=== PATIENT | female | born 1990 | race American Indian/Alaskan Native ===

== ENCOUNTER → 2018-02-09 | Day surgery (SDC) | payer OTHER ==
[2018-02-08 13:34] VITALS: BMI 36.2
[~2018-02-09] MED LIST: Bupivacaine 0.25% Inj(30mL) ONE; Bupivacaine 0.5% Inj(30mL) ONE; HYDROmorphone 0.5 mg/0.5 ml ISec IVP PRN; Lactated Ringer's 1,000 ML IV SCH; Lidocaine 1% Inj (20ml) ONE; Lidocaine PF 2% (5 ml) Inj (For Cardiac Arrhy) ONE; Midazolam 2 MG/2 ML VIAL ONE; Propofol 10 mg/ml Inj (20 ML) ONE; Sodium Chloride 0.9% 10 ML IV ONE
[2018-02-09 13:48] LABS: BASO # 0.01 K/mm3 (0.0-2.0); BASO % 0.1 % (0.0-3.0); EOS % 0.3 % (1.5-5.0); GRAN # 5.4 (1.4-6.5); HEMOGLOBIN 12.4 g/dL (12.0-16.0); LYMPH # 3.2 (1.2-3.4); LYMPH % 35.8 % (22.0-35.0); MEAN CELL VOLUME 91.9 fl (80.0-105.0); MEAN CORPUSCULAR HEMOGLOBIN 32.5 pg (25.0-35.0); MEAN CORPUSCULAR HGB CONC 35.3 g/dl (31.0-37.0); MEAN PLATELET VOLUME 8.8 fl (7.0-11.0); MONO # 0.3 (0.1-0.6); MONO % 3.8 % (1.0-6.0); RBC 3.82 10^6/uL (3.5-6.1); RED CELL DISTRIBUTION WIDTH 12.7 % (11.5-14.5)
[2018-02-09 14:06] LABS: ALB/GLOB RATIO 1.4 (1.1-1.8); ALT/SGPT 39 U/L (7-56); AST/SGOT 26 U/L (14-36); BLOOD UREA NITROGEN 12 mg/dL (7-21); GFR AFRICAN-AMERICAN > 60; GFR NON-AFRICAN AMERICAN > 60
--- NOTE | 2018-02-09 16:28 | PCM.SURG1 ---
Surgeon's Initial Post Op Note - Surgeon's Notes Surgeon: Jeremiah Barraza. DPM Chin Strap Sewer: Sukumar Andres. PGY1, Nik Rob. PGY2 Type of Anesthesia: IV Sedation, Local Anesthesia Administered By: Dr. 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 Operative Findings: See Dictation. Materials: 3-0 Prolene, Amniofix graft injection. Injectables: - 20 cc of 1:1 mixture of lidocaine 1% and bupivacaine 0.5% For block. - 17 cc of 0.25 marcaine at the end of the surgery. Post-Operative Diagnosis: same Operation Performed: Debridement of chronic Achilles tendonitis and partial tear using Tanex and injection of amniofix. Specimen/Specimens Removed: None Estimated Blood Loss: EBL {In ML}: 1 Blood Products Given: N/A Drains Used: No Drains Post-Op Condition: Good Date of Surgery/Procedure: 02/09/18 Time of Surgery/Procedure: 16:30
[2018-02-09 17:07] VITALS: BP 113/59; PULSE 54; RESP 18; TEMP 98.4; O2SAT 100
--- NOTE | 2018-02-12 13:41 | CON ---
Copied To: SUKUMAR ANDRES, PGY1 Attending MD: Jeremiah Navarro DPM DATE: 02/09/2018 SURGEON: Jeremiah Navarro DPM REPROGRAPHICS TECHNICIAN: Sukumar Andres, PGY-1; Nik Rob, PGY-2. FACTORY CLERK: Jean Carlos Troncoso MD ANESTHESIOLOGY: Sedation with local. PREOPERATIVE DIAGNOSIS: Right chronic Achilles tendonitis and partial tear. POSTOPERATIVE DIAGNOSIS: Right chronic Achilles tendonitis and partial tear. NAME OF THE PROCEDURES: 1. Debridement of right Achilles tendonitis and partial tear . 2. AmnioFix injection. INDICATIONS: The patient is a 27-year-old female with the above diagnosis. The patient has exhausted all conservative treatment at this time and now requires surgical intervention. The patient signed the consent after careful explanation of risks, benefits, complications, and alternatives for surgical procedure. No guarantees were given nor implied. PREPARATION: The patient was brought to the operating room and placed on the operating room table in a prone position. Timeout was performed for identification of correct patient and procedure. After induction of IV sedation, the patient received a total of 20 mL of 1:1 mixture of 1% lidocaine plain and 0.5% of Marcaine plain in a local block type fashion to the right ankle and heel at the level of the Achilles tendon. Once local anesthesia was achieved, the right foot and ankle were then prepped and draped in a normal sterile manner. No tourniquet was used during the procedure. Attention was then directed to the right ankle. The right heel was placed over the ultrasound transducer, and the diagnostic ultrasound was performed. The anatomy was identified, and the adhesed thickened area of Achilles tendon with multiple scarring, partial tear, and inflammation was observed. Using #11 blade, two stab incisions were made to the lateral aspect of the right ankle above and below the scar of previous Achilles tendon surgery. The CX2 handpiece was inserted into the midsubstance of the Achilles tendon. The hypoechoic region of the Achilles tendon was visualized with ultrasound, the foot pedal was depressed, and area was debrided and tissue excised. A total of 3 minutes of ultrasonic energy was delivered. Procedure 2: Injection of AmnioFix. 3 mL of AmnioFix was injected into the Achilles tendon. Using 3-0 Prolene suture, skin was closed at the incision site with horizontal mattress sutures. The incision sites were dressed with Adaptic, gauze, Kerlix, Webril, posterior splint applied, and dressed with Camilo bandage. POSTOPERATIVE CONDITION: The patient tolerated the anesthesia and the procedure well and was escorted to the recovery room with vital signs stable and neurovascular status intact to the right foot. The patient is to remain non weightbearing to the right foot and ambulate with crutches. The patient will be seen and followed by Dr. Jeremiah Navarro as an outpatient at his office. SUKUMAR ANDRES PGY1 Jeremiah Navarro DPM JESSICA
== END | disposition home or self-care (01) ==
LOC: SDS 13:04
PROVIDERS: ATTEND Podiatrist Foot & Ankle Surgery
DX: M76.61 Achilles tendinitis, right leg (principal); S86.011A Strain of right Achilles tendon, initial encounter
CPT/HCPCS: 11043; 36415; 80053; 84703; 85025; 96372; J0690; J1170; J2001; J2250; J2405; J2704; J3010; J7120

== ENCOUNTER 2018-07-13 11:14 | Day surgery (SDC) | payer OTHER ==
[2018-07-10 08:22] VITALS: BMI 35.2
[2018-07-13] MEDS ORDERED: Bupivacaine 0.5% 50 ML IJ ONE ×2 (11:15→13:38)
[2018-07-13] MEDS ORDERED: Propofol 10 mg/ml Inj (20 ML) ONE (13:08)
[2018-07-13] MEDS ORDERED: Succinylcholine 200 mg/10 ml Inj IV ONE (13:10)
[2018-07-13] MEDS ORDERED: Oxycodone/Acetaminophen 5/325 mg Tab PO PRN ×2 (14:33)
--- NOTE | 2018-07-13 14:40 | PCM.SURG1 ---
Surgeon's Initial Post Op Note - Surgeon's Notes Surgeon: Dr Jeremiah Mo [employer] Analyst: Alia Truong Type of Anesthesia: General LMA Anesthesia Administered By: Dr Bhandari Pre-Operative Diagnosis: Right achilles tendinosis Operative Findings: see dictation. materials: 4-0 prolene. injectibles: 11 cc of .5% marcaine plain Post-Operative Diagnosis: see dictation Operation Performed: right achilles tendon debridement Specimen/Specimens Removed: none Estimated Blood Loss: EBL {In ML}: 2 Blood Products Given: N/A Drains Used: No Drains Post-Op Condition: Good Date of Surgery/Procedure: 07/13/18 Time of Surgery/Procedure: 14:39
[2018-07-13] MEDS ORDERED: HYDROmorphone 0.5 mg/0.5 ml ISec IVP PRN (14:43)
[2018-07-13] MEDS ORDERED: Lactated Ringer's 1,000 ML IV SCH (14:45)
[2018-07-13 15:58] VITALS: PULSE 62; RESP 20; TEMP 97.8; O2SAT 97
[2018-07-13 16:59] VITALS: BP 116/74
--- NOTE | 2018-07-17 04:11 | OP ---
PROCEDURE DATE: 07/13/2018 PREOPERATIVE DIAGNOSIS: Right Achilles tendinosis. POSTOPERATIVE DIAGNOSIS: Right Achilles tendinosis. PROCEDURE: Ultrasound-guided Achilles tendon debridement. SURGEON: Jeremiah Navarro DPM TOPLINE BEADING MACHINE TENDER: Alia Truong DPM, PGY-1 ANESTHESIOLOGIST: Kwame Bhandari MD INDICATION: The patient is a 28-year-old female with the above diagnosis. The patient exhausted all conservative treatment at this time and now requests surgical intervention. The patient signed the consent after careful explanation of risks, benefits, complications and alternatives to the surgical procedure. No guarantees were given nor implied. PREPARATION: The patient was brought into the operating room and placed on the operating room table in a prone position. Time-out was performed for identification of the correct patient and procedure. After induction of general LMA, the patient received a total of 11 mL of 0.5% Marcaine plain in a local block type fashion in the right Achilles tendon insertion. Once local anesthesia was achieved, the right foot was then prepped and draped in normal sterile manner. No tourniquet was used during the procedure. Attention was then directed to the distal aspect of the Achilles tendon insertion. Barrel sleeve was placed over the ultrasound transducer and a diagnostic ultrasound was performed. The anatomy was identified and diseased. Thickened area was seen at the insertion of the Achilles tendon, near the insertion at the calcaneus. Using a #11 blade, a stab incision was created over the Achilles tendon insertion. Surgical instrument was then introduced. Once the intstrument was located in the ultrasound, and hypoechoic lesion was visualized with ultrasound, the pedal was depressed and the area was debrided and tissue was excised. This was continued for 2 minutes, debriding all the hypoechoic tissue seen on the ultrasound. The incision site was then sutured using 4-0 nylon. The site was then dressed with Xeroform gauze, Jessica and Camilo with mild compression. POSTOPERATIVE CONDITION: The patient tolerated the anesthesia and procedure well and was escorted to the recovery room with vital signs stable and neurovascular status intact to the right foot. The patient is to remain nonweightbearing to the right foot with the use of crutches at this time. The patient will be seen and followed by Dr. Navarro as an outpatient in his office. ALIA TRUONG Jeremiah Navarro DPM JESSICA
== END 2018-07-13 16:55 | disposition home or self-care (01) ==
LOC: SDS 11:14
PROVIDERS: ATTEND Podiatrist Foot & Ankle Surgery
DX: M76.61 Achilles tendinitis, right leg (principal)
CPT/HCPCS: 11043; 84703; J0330; J0690; J1170; J2001; J2405; J2704; J2765; J3010; J7120 ×2